=== PATIENT | male | born 1995 | race Caucasian/White ===

== ENCOUNTER 2022-04-21 16:44 | Emergency (ER) | payer OTHER, MEDICAID, SELFPAY ==
[2022-04-21 16:48] VITALS: BP 124/82; PULSE 90; RESP 18; TEMP 37.2; O2SAT 100; BMI 29.9
[2022-04-21 17:02] LABS: MANUAL DIFF FLAG NO
[2022-04-21 17:05] LABS: Basophils Percent Auto 0.2 % (0-2); Eosinophils Absolute Auto 0.1 X10*3/uL (0.0-0.4); Eosinophils Percent Auto 0.4 % (0-4); Hematocrit 47.8 % (42.0-52.0); Hemoglobin 16.7 g/dl (14.0-18.0); Imm Gran Abs Auto 0.05 X10*3/uL (0.00-0.03); Imm Gran Pct Auto 0.4 % (0.0-0.4); Lymphocytes Absolute Auto 2.4 X10*3/uL (1.2-4.9); Lymphocytes Percent Auto 18.5 % (20-40); Mean Corpuscular HGB Conc 34.9 g/dl (31.0-36.0); Mean Corpuscular Hemoglobin 29.7 pg (27.0-33.0); Mean Corpuscular Volume 84.9 fL (80.0-98.0); Mean Platelet Volume 10.1 fL (9.4-12.4); Monocytes Absolute Auto 0.9 X10*3/uL (0.1-1.2); Monocytes Percent Auto 6.6 % (2-11); Neutrophils Absolute Auto 9.6 x10*3/uL (2.0-8.3); Neutrophils Percent Auto 73.9 % (45-73); Platelet Count 201 X10*3/uL (160-400); Red Blood Count 5.63 X10*6/uL (4.60-5.80); Red Cell Distribution Width 12.1 % (11.0-16.0)
[2022-04-21 17:19] LABS: Alanine Aminotransferase 17 U/L (0-40); Albumin Level 4.8 g/dL (3.5-5.0); Alkaline Phosphatase 93 U/L (39-117); Anion Gap 11 (12-20); Aspartate Amino Transferase 19 U/L (5-37); Bilirubin Direct 0.4 mg/dL (0.0-0.5); Bilirubin Total 1.1 mg/dL (0.0-1.0); Blood Urea Nitrogen 8 mg/dL (9-16); Calcium 9.3 mg/dL (8.4-10.2); Carbon Dioxide 27 mmol/L (22-29); Chloride 104 mmol/L (96-108); Estimated Glomerular Filt Rate > 60; Glucose Random 101 mg/dL (60-115); Sodium 138 mmol/L (135-145)
[2022-04-21 18:29] LABS: Appearance Urine CLEAR; Color Urine YELLOW; Glucose Urine UA NEG (NEG); Leukocyte Esterase Urine NEG (NEG); Nitrite Urine NEG (NEG); Urine Blood NEG (NEG); Urine Ketones NEG (NEG); Urine Protein NEG (NEG-TRACE)
--- NOTE | 2022-04-21 19:55 | PC.NURSE ---
MD at bedside for evaluation
[2022-04-21 19:57] VITALS: BP 109/66; PULSE 61; RESP 18; TEMP 36.8; O2SAT 98
--- NOTE | 2022-04-21 20:01 | ED_ITS ---
HPI - Abdominal Pain General Chief Complaint: Abdominal Pain Stated Complaint: abd pain ,vomiting Time Seen by Provider: 04/21/22 19:46 Source: patient Mode of arrival: ambulatory Limitations: no limitations (Patient is from [place], he does speak Italian, his 1st language is [place]) History of Present Illness HPI narrative: 26-year-old male who presents emergency department for evaluation of nausea, vomiting and throat abdominal discomfort. Patient states that he ate chicken yesterday but did not have any nausea or vomiting or difficulties at that time. He states this morning he ate a banana and shortly after eating the banana he vomited. He states that he has been vomiting all day and has not been able to hold down food or fluid. He states that he feels that something is stuck in his throat but he is not having any difficulty swallowing his saliva. He denied fever, chills, cough, chest pain, shortness of breath, frequency, urgency or dysuria. He has not noticed any dark tarry stools or bloody stools. He denies abdominal pain. States that he is feeling weak and fatigued. Related Data Previous Rx's Medication Instructions Recorded acetaminophen 500 mg tablet 1,000 mg PO Q6H PRN fever or pain 04/21/22 (Tylenol Extra Strength) #20 tabs famotidine 20 mg tablet (Pepcid) 20 mg PO DAILY #14 tabs 04/21/22 ondansetron 4 mg disintegrating 4 mg PO Q6-8H PRN nausea and 04/21/22 tablet vomiting #14 tabs Allergies Allergy/AdvReac Type Severity Reaction Status Date / Time No Known Allergies Allergy Verified 04/21/22 16:48 Review of Systems Review of Systems Yes all other systems are reviewed and are negative COUNTS INCLUDE 234 BEDS AT THE [facility] Past Medical History COUNTS INCLUDE 234 BEDS AT THE [facility] Narrative: Past medical history: None. Past surgical history: None. Social history: Patient is from [place]. He does speak Italian. He denies tobacco and alcohol use. He states he occasionally smokes marijuana. Medical History (Updated 04/21/22 @ 21:20 by Mark Anthony Rock MD) No known health problems Surgical History (Updated 04/21/22 @ 19:56 by Veena Riley) No history of previous surgery Social History Social History Alcohol intake: never Patient Tobacco Use Status: Never used Tobacco Use of substances other than those prescribed or required for medical reasons: No Advance Directives: No Advance Directives Information Provided: Yes Physical Exam ED Vital Signs: Vital Signs - 24 hr 04/21/22 16:48 04/21/22 19:57 Temperature 98.9 F 98.3 F Pulse Rate 90 61 Respiratory Rate 18 18 Blood Pressure 124/82 109/66 Pulse Oximetry 100 98 Oxygen Delivery Method Room Air Room Air BMI result Body Mass Index 29.9 Const General: cooperative and no acute distress Orientation/consciousness: oriented to person and oriented to place Limitations: no limitations HENMT Head: Yes normal to inspection, Yes normocephalic and Yes atraumatic Ears: external ears normal General nose exam: Normal external nose present Face and sinus: Yes normal facial exam Mouth: Normal oral and palatal mucosa present Throat: Yes posterior oropharynx normal Eyes General: appearance normal, both eyes and all related structures Pupils: Equal, round and reactive pupils present Neck Neck: Yes normal visual inspection, Yes no lymphadenopathy, Yes trachea midline and Yes supple Chest Chest palpation & inspection: normal inspection of the chest and normal palpation of entire chest wall Resp Effort & Inspection: normal respiratory effort and able to speak in complete sentences Auscultation: clear to auscultation bilaterally Cardio Rate: regular rate Rhythm: regular rhythm Heart sounds: S1 normal heart sound present, S2 normal heart sound present and no murmurs GI Inspection: Yes normal to inspection Palpation (GI): Soft to palpation, nontender and no guarding Auscultation: normal bowel sounds General: Yes no CVA tenderness Back/Spine/Pelvis Back: no CVA tenderness Skin General skin exam: no rashes or lesions noted Neuro General: oriented to person and oriented to place Cranial nerves: Yes CN's II-XII intact bilaterally and Yes Equal, round and reactive pupils present Cognition (Neuro): normal cognition Motor exam (neuro): 5/5 motor strength present throughout Extrem General: Yes normal to inspection Psych Appearance: grossly normal Speech and movement: Normal speech and movement present Affect: normal affect Attitude: cooperative Thought process: Normal thought process present Thought content: Normal thought content present Course Course Course Narrative: 26-year-old male who presents emergency department for evaluation of nausea vomiting and throat pain. The patient had chicken the ED yesterday but did not feel as if anything was stuck in his throat. Today when he ate a banana he started to vomit and he has been vomiting all day long. He states that he has a sensation of something is stuck in his throat but he is able to swallow his secretions without any difficulty. Patient's vital signs were normal. His examination was unremarkable with no abdominal tenderness. Laboratory evaluation did [place] [address]. His comprehensive metabolic panel was normal. Patient's presentation is consistent with an acute viral syndrome and I do not think that he has esophageal obstruction. Patient was ordered to get normal saline IV x2 L, Zofran 4 mg IV and Toradol 15 mg IV. After the patient gets these medications we will try a oral fluid challenge. 2116: Patient is feeling better after the above treatment. Patient was able to drink glass of water without any difficulty. Patient's presentation is consistent with acute viral syndrome with nausea vomiting and abdominal pain. Patient was given prescriptions for Pepcid 20 mg daily for 2 weeks, Zofran ODT 4 mg every 6-8 hours as needed for nausea and vomiting and extra-strength Tylenol 500 mg pills, 2 pills every 6 hours as needed for pain. He was given printed and verbal instructions and discharged home. MDM - Abdominal Pain Lab Data Result diagrams: 04/21/22 16:57 04/21/22 16:57 Labs: Lab Results 04/21/22 04/21/22 04/21/22 Range/Units 16:57 16:57 18:08 WBC 13.0 H (4.8-10.8) X10*3/uL RBC 5.63 (4.60-5.80) X10*6/uL Hgb 16.7 (14.0-18.0) g/dl Hct 47.8 (42.0-52.0) % MCV 84.9 (80.0-98.0) fL MCH 29.7 (27.0-33.0) pg MCHC 34.9 (31.0-36.0) g/dl RDW 12.1 (11.0-16.0) % Plt Count 201 (160-400) X10*3/uL MPV 10.1 (9.4-12.4) fL Immature Gran % (Auto) 0.4 (0.0-0.4) % Neut % (Auto) 73.9 H (45-73) % Lymph % (Auto) 18.5 L (20-40) % [place] % (Auto) 6.6 (2-11) % Eos % (Auto) 0.4 (0-4) % Baso % (Auto) 0.2 (0-2) % Lymph # (Auto) 2.4 (1.2-4.9) X10*3/uL [place] # (Auto) 0.9 (0.1-1.2) X10*3/uL Eos # (Auto) 0.1 (0.0-0.4) X10*3/uL Baso # (Auto) 0.0 (0.0-0.2) X10*3/uL Abs Immat Gran (auto) 0.05 H (0.00-0.03) X10*3/uL Absolute Neuts (auto) 9.6 H (2.0-8.3) x10*3/uL Absolute Nucleated RBC 0.000 (0.0-0.012) X10*3/uL Nucleated RBC % (auto) 0.0 (0.0-0.2) /100WBC Sodium 138 (135-145) mmol/L Potassium 4.0 (3.3-5.1) mmol/L Chloride 104 (96-108) mmol/L Carbon Dioxide 27 (22-29) mmol/L Anion Gap 11 L (12-20) BUN 8 L (9-16) mg/dL Creatinine 0.94 (0.5-1.4) mg/dL Estim Creat Clear Calc 121.0 Estimated GFR > 60 Random Glucose 101 (60-115) mg/dL Calcium 9.3 (8.4-10.2) mg/dL Total Bilirubin 1.1 H (0.0-1.0) mg/dL Direct Bilirubin 0.4 (0.0-0.5) mg/dL AST 19 (5-37) U/L ALT 17 (0-40) U/L Alkaline Phosphatase 93 (39-117) U/L Total Protein 8.0 (6.5-8.0) g/dL Albumin 4.8 (3.5-5.0) g/dL Urine Color YELLOW Urine Appearance CLEAR Urine pH 8.0 (5.0-8.0) Ur Specific [place] 1.010 (1.005-1.025) Urine Protein NEG (NEG-TRACE) MG/DL Urine Glucose (UA) NEG (NEG) MG/DL Urine Ketones NEG (NEG) MG/DL Urine Blood NEG (NEG) Urine Nitrite NEG (NEG) Ur Leukocyte Esterase NEG (NEG) Discharge Plan Discharge Clinical Impression: Viral syndrome Abdominal pain Qualifiers: Abdominal location: epigastric Qualified Code(s): R10.13 - Epigastric pain Vomiting Qualifiers: Vomiting type: unspecified Nausea presence: with nausea Qualified Code(s): R11.2 - Nausea with vomiting, unspecified Patient Disposition: Home, Self-Care Instructions: Viral Syndrome (ED) Additional Instructions: Your blood work revealed an elevated white blood cell count which is consistent with an infection The rest of your blood work was normal. Your symptoms and findings are consistent with a viral infection. Take Zofran ODT 4 mg pills, 1 pill dissolved in your mouth every 8 hours as needed for nausea and vomiting. Take Tylenol (acetaminophen) 500 mg pills, 2 pills every 4 to 6 hours as needed for pain. Take Pepcid (famotidine) 20 mg pills, 1 pill once a day. This medication will reduce the amount of acid that your stomach produces and help with your abdominal discomfort. Follow-up with your doctor in 2 days. Please return to the emergency department if your symptoms get worse or if you develop any symptoms that are concerning to you. Prescriptions: New ondansetron 4 mg tablet,disintegrating 4 mg PO Q6-8H PRN (Reason: nausea and vomiting) Qty: 14 0RF acetaminophen [Tylenol Extra Strength] 500 mg tablet 1,000 mg PO Q6H PRN (Reason: fever or pain) Qty: 20 0RF famotidine [Pepcid] 20 mg tablet 20 mg PO DAILY Qty: 14 0RF
[2022-04-21] MEDS: 0.9 % Sodium Chloride 1,000 ML 999 ML IV ×2 (20:16)
[2022-04-21] MEDS: ondansetron HCL 4 MG/2 ML VIAL IVPUSH (20:16)
[2022-04-21] MEDS: Ketorolac Tromethamine 15 MG/ML VIAL IVPUSH (20:17)
== END 2022-04-21 21:37 | disposition home or self-care (01) ==
PROVIDERS: Emergency Provider Emergency Medicine Emergency Medical Services
DX: B34.9 Viral infection, unspecified (principal); R11.2 Nausea with vomiting, unspecified; R10.13 Epigastric pain
CPT/HCPCS: 36415; 80053; 81003; 82248; 85025; 96361; 96374; 96375; 99284; J1885; J2405